=== PATIENT | female | born 1950 | race Caucasian/White ===

== ENCOUNTER → 2024-04-07 07:46 | Outpatient (REF) | payer MEDICARE, SELFPAY | LOC: RCS 07:46 | PROVIDERS: ATTENDING PHYSICIAN Internal Medicine Cardiovascular Disease; FAMILY PHYSICIAN Family Medicine | DX: Z85.3 Personal history of malignant neoplasm of breast (principal); Z92.3 Personal history of irradiation; R06.09 Other forms of dyspnea | CPT/HCPCS: 93017; 93350 ==

== ENCOUNTER → 2024-04-14 08:05 | Outpatient (REF) | payer MEDICARE, SELFPAY | LOC: HWRCS 08:05 | PROVIDERS: ATTENDING PHYSICIAN Internal Medicine Cardiovascular Disease; FAMILY PHYSICIAN Family Medicine | DX: Z85.3 Personal history of malignant neoplasm of breast (principal); Z92.3 Personal history of irradiation; R06.09 Other forms of dyspnea | CPT/HCPCS: 93306 ==

== ENCOUNTER → 2024-05-09 07:16 | Outpatient (REF) | payer MEDICARE, SELFPAY | LOC: HWRAD 07:16 | PROVIDERS: ATTENDING PHYSICIAN Internal Medicine Cardiovascular Disease; FAMILY PHYSICIAN Family Medicine | DX: R06.09 Other forms of dyspnea (principal); I65.23 Occlusion and stenosis of bilateral carotid arteries | CPT/HCPCS: 93880 ==

== ENCOUNTER → 2025-01-05 07:35 | Outpatient (REF) | payer MEDICARE, SELFPAY | LOC: HWWDC 07:35 | PROVIDERS: ATTENDING PHYSICIAN Family Medicine | DX: Z12.31 Encounter for screening mammogram for malignant neoplasm of breast (principal) | CPT/HCPCS: 77063; 77067 ==